=== PATIENT | female | born 1980 | race Hispanic/Latino ===

== ENCOUNTER → 2024-08-20 | Outpatient (CLI) | payer OTHER ==
--- NOTE | 2024-08-20 16:46 | HMCIMG ---
US VENOUS DOPPLER BILATERAL HISTORY: Pain COMPARISON: None TECHNIQUE: Bilateral lower extremity venous Doppler ultrasound study was performed. FINDINGS: The common femoral, femoral, popliteal, and posterior tibial veins are visualized. Normal flow with augmentation and compressibilities are demonstrated. The greater saphenous veins are also seen and grossly patent. IMPRESSION: 1. No evidence of deep venous thrombosis is seen.
--- NOTE | 2024-08-20 17:10 | HMCIMG ---
LUMBAR SPINE 4+VWS HISTORY: Back pain COMPARISON: None FINDINGS: 5 images of the lumbar spine were obtained. There is straightening of normal lordotic curvature which may be related to muscle spasm or positioning. No loss of vertebral height is seen. No fracture or dislocation is seen. Minimal degenerative changes are seen. IMPRESSION: 1. No fracture is seen.
== END | disposition home or self-care (01) ==
LOC: RAH 13:42
PROVIDERS: ATTEND Student in an Organized Health Care Education/Training Program
DX: I87.1 Compression of vein (principal); M54.16 Radiculopathy, lumbar region; M79.604 Pain in right leg; M79.605 Pain in left leg
CPT/HCPCS: 72110; 93970